=== PATIENT | male | born 1970 | race Two or more races ===

== ENCOUNTER 2017-01-26 11:21 | Emergency (ER) | payer MEDICAID ==
[2017-01-26 11:26] VITALS: RESP 18
[2017-01-26] MEDS ORDERED: SODIUM CHLORIDE 0.9% 1,000 ML IV STA ×2 (11:41)
--- NOTE | 2017-01-26 12:05 | ED ---
General Adult HPI - General Chief complaint: Dizziness Stated complaint: DIZZINESS Time Seen by Provider: 01/26/17 11:28 Source: patient, RN notes reviewed, old records reviewed Mode of arrival: wheelchair Limitations: no limitations - History of Present Illness Initial comments: This is a 46-year-old no the ER for evaluation. Patient is safe reevaluation of nonspecific symptoms, dizziness and lightheadedness. Symptoms began shortly after waking up this morning around 10 AM. Patient has medical history of high blood pressure, no high cholesterol no diabetes nonsmoker. She has a cardiac evaluation in the past including stress test and echo which were normal. She denies chest pain. No significant diaphoresis. No recent fevers cough or congestion. Patient does admit to recent left-sided flank pain which he thinks he twisted something at work. No problems with urination no diarrhea. Patient states he feels like lightheaded like his head is floating. Not able to focus. - Related Data Home Medications Medication Instructions Recorded Confirmed Losartan Potassium [Cozaar] 50 mg PO HS 01/26/17 01/26/17 Allergies Allergy/AdvReac Type Severity Reaction Status Date / Time codeine AdvReac Nausea & Verified 01/26/17 11:41 Vomiting Review of Systems ROS Statement: Those systems with pertinent positive or pertinent negative responses have been documented in the HPI. ROS Other: All systems not noted in ROS Statement are negative. Past Medical History Past Medical History: Hypertension History of Any Multi-Drug Resistant Organisms: None Reported Past Surgical History: Joint Replacement, Orthopedic Surgery Past Psychological History: No Psychological Hx Reported Smoking Status: Never smoker Past Alcohol Use History: None Reported Past Drug Use History: None Reported General Exam Limitations: no limitations General appearance: alert, in no apparent distress Head exam: Present: atraumatic, normocephalic, normal inspection Eye exam: Present: normal appearance, PERRL, EOMI. Absent: scleral icterus, conjunctival injection, periorbital swelling ENT exam: Present: normal exam, mucous membranes moist Neck exam: Present: normal inspection. Absent: tenderness, meningismus, lymphadenopathy Respiratory exam: Present: normal lung sounds bilaterally. Absent: respiratory distress, wheezes, rales, rhonchi, stridor Cardiovascular Exam: Present: regular rate, normal rhythm, normal heart sounds. Absent: systolic murmur, diastolic murmur, rubs, gallop, clicks GI/Abdominal exam: Present: soft, normal bowel sounds. Absent: distended, tenderness, guarding, rebound, rigid Extremities exam: Present: normal inspection, full ROM, normal capillary refill. Absent: tenderness, pedal edema, joint swelling, calf tenderness Back exam: Present: normal inspection Neurological exam: Present: alert, oriented X3, CN II-XII intact Psychiatric exam: Present: normal affect, normal mood Skin exam: Present: warm, dry, intact, normal color. Absent: rash Course Vital Signs 01/26/17 01/26/17 01/26/17 11:23 12:02 13:17 Temperature 97.9 F 97.9 F Pulse Rate 91 88 78 Respiratory 18 18 18 Rate Blood Pressure 144/86 130/76 128/75 O2 Sat by Pulse 98 96 96 Oximetry 01/26/17 15:09 Temperature 98.1 F Pulse Rate 72 Respiratory 18 Rate Blood Pressure 127/67 O2 Sat by Pulse 98 Oximetry EKG Findings - EKG Comments: EKG Findings:: EKG shows normal sinus rhythm rate 79, HI 162, QRS 90, QTC 433 Medical Decision Making - Medical Decision Making 46-year-old year with nonspecific dizziness and pain. Left flank pain mainly complaining of dizziness and episodic. Chest pain. No significant stressor with at this time. Patient has nonspecific symptoms, labwork is normal EKG is normal troponin is negative CT of abdomen and pelvis shows no thoracic aortic injury or abdominal aortic injury, patient does have kidney stone, likely cause of pain. Patient at this time is without complaint, feeling better with IV fluid and can be discharged home to follow up for outpatient stress test - Lab Data Result diagrams: 01/26/17 11:40 01/26/17 11:40 Lab Results 01/26/17 01/26/17 01/26/17 Range/Units 11:40 11:40 11:40 WBC 4.4 (3.8-10.6) k/uL RBC 5.20 (4.30-5.90) m/uL Hgb 16.5 (13.0-17.5) gm/dL Hct 46.6 (39.0-53.0) % MCV 89.6 (80.0-100.0) fL MCH 31.7 (25.0-35.0) pg MCHC 35.4 (31.0-37.0) g/dL RDW 13.0 (11.5-15.5) % Plt Count 258 (150-450) k/uL Neutrophils % 70 % Lymphocytes % 20 % Monocytes % 7 % Eosinophils % 2 % Basophils % 1 % Neutrophils # 3.0 (1.3-7.7) k/uL Lymphocytes # 0.9 L (1.0-4.8) k/uL Monocytes # 0.3 (0-1.0) k/uL Eosinophils # 0.1 (0-0.7) k/uL Basophils # 0.0 (0-0.2) k/uL Hyperchromasia Slight PT (9.0-12.0) sec INR (<1.1) APTT (22.0-30.0) sec D-Dimer (<0.60) mg/L FEU Sodium 142 (137-145) mmol/L Potassium 4.3 (3.5-5.1) mmol/L Chloride 106 (98-107) mmol/L Carbon Dioxide 26 (22-30) mmol/L Anion Gap 10 mmol/L BUN 13 (9-20) mg/dL Creatinine 0.77 (0.66-1.25) mg/dL Est GFR (MDRD) Af Amer >60 (>60 ml/min/1.73 sqM) Est GFR (MDRD) Non-Af >60 (>60 ml/min/1.73 sqM) Glucose 105 H (74-99) mg/dL Calcium 9.3 (8.4-10.2) mg/dL Phosphorus 2.3 L (2.5-4.5) mg/dL Magnesium 2.1 (1.6-2.3) mg/dL Total Bilirubin 0.7 (0.2-1.3) mg/dL AST 35 (17-59) U/L ALT 48 (21-72) U/L Alkaline Phosphatase 93 (38-126) U/L Total Creatine Kinase 69 (55-170) U/L CK-MB (CK-2) 1.0 (0.0-2.4) ng/mL CK-MB (CK-2) Rel Index 1.4 Troponin I <0.012 (0.000-0.034) ng/mL Total Protein 7.1 (6.3-8.2) g/dL Albumin 4.5 (3.5-5.0) g/dL Lipase (23-300) U/L 01/26/17 01/26/17 01/26/17 Range/Units 11:40 11:40 11:40 WBC (3.8-10.6) k/uL RBC (4.30-5.90) m/uL Hgb (13.0-17.5) gm/dL Hct (39.0-53.0) % MCV (80.0-100.0) fL MCH (25.0-35.0) pg MCHC (31.0-37.0) g/dL RDW (11.5-15.5) % Plt Count (150-450) k/uL Neutrophils % % Lymphocytes % % Monocytes % % Eosinophils % % Basophils % % Neutrophils # (1.3-7.7) k/uL Lymphocytes # (1.0-4.8) k/uL Monocytes # (0-1.0) k/uL Eosinophils # (0-0.7) k/uL Basophils # (0-0.2) k/uL Hyperchromasia PT 10.3 (9.0-12.0) sec INR 1.0 (<1.1) APTT 25.5 (22.0-30.0) sec D-Dimer 0.47 (<0.60) mg/L FEU Sodium (137-145) mmol/L Potassium (3.5-5.1) mmol/L Chloride (98-107) mmol/L Carbon Dioxide (22-30) mmol/L Anion Gap mmol/L BUN (9-20) mg/dL Creatinine (0.66-1.25) mg/dL Est GFR (MDRD) Af Amer (>60 ml/min/1.73 sqM) Est GFR (MDRD) Non-Af (>60 ml/min/1.73 sqM) Glucose (74-99) mg/dL Calcium (8.4-10.2) mg/dL Phosphorus (2.5-4.5) mg/dL Magnesium (1.6-2.3) mg/dL Total Bilirubin (0.2-1.3) mg/dL AST (17-59) U/L ALT (21-72) U/L Alkaline Phosphatase (38-126) U/L Total Creatine Kinase (55-170) U/L CK-MB (CK-2) (0.0-2.4) ng/mL CK-MB (CK-2) Rel Index Troponin I (0.000-0.034) ng/mL Total Protein (6.3-8.2) g/dL Albumin (3.5-5.0) g/dL Lipase 183 (23-300) U/L - Radiology Data Radiology results: report reviewed (Chest x-ray is negative for acute disease, CT abdomen and pelvis is positive for kidney stone, no aortic disease), image reviewed Disposition Clinical Impression: Calculus of left kidney, Dizziness Disposition: HOME SELF-CARE Condition: Good Instructions: Kidney Stones (ED), Dizziness (ED) Referrals: Yaniv Kelley DO [Primary Care Provider] - 1-2 days
[2017-01-26 12:06] LABS: Basophils % (A) 1 %; CH 33.2; CHCM 37.3; Eosinophils # (A) 0.1 k/uL (0-0.7); Eosinophils % (A) 2 %; HCT 46.6 % (39.0-53.0); HDW 3.19; HGB 16.5 gm/dL (13.0-17.5); Hyperchromasia Slight; Luc # (Auto) 0.06; Luc % (Auto) 2; Lymphocytes # (A) 0.9 k/uL (1.0-4.8); Lymphocytes % (A) 20 %; MCH 31.7 pg (25.0-35.0); MCHC 35.4 g/dL (31.0-37.0); MCV 89.6 fL (80.0-100.0); Mean Platelet Volume 6.4; Monocytes # (A) 0.3 k/uL (0-1.0); Monocytes % (A) 7 %; Neutrophils % (A) 70 %; WBC 4.4 k/uL (3.8-10.6); WBC (Perox) 4.23
[2017-01-26 12:14] LABS: ALT 48 U/L (21-72); AST 35 U/L (17-59); Alkaline Phosphatase 93 U/L (38-126); Anion Gap 10 mmol/L; Blood Urea Nitrogen 13 mg/dL (9-20); Calcium 9.3 mg/dL (8.4-10.2); Carbon Dioxide 26 mmol/L (22-30); Chloride 106 mmol/L (98-107); Glucose 105 mg/dL (74-99); Magnesium 2.1 mg/dL (1.6-2.3); Non-African American GFR(MDRD) >60 (>60 ml/min/1.73 sqM); Phosphorous 2.3 mg/dL (2.5-4.5); Potassium 4.3 mmol/L (3.5-5.1); Sodium 142 mmol/L (137-145); Total Bilirubin 0.7 mg/dL (0.2-1.3); Total Protein 7.1 g/dL (6.3-8.2)
[2017-01-26 12:21] LABS: Partial Thromboplastin Time 25.5 sec (22.0-30.0); Prothrombin Time 10.3 sec (9.0-12.0)
--- NOTE | 2017-01-26 12:21 | XR ---
EXAMINATION TYPE: XR chest 2V DATE OF EXAM: 01/26/2017 12:11 PM COMPARISON: NONE HISTORY: Chest pain TECHNIQUE: Frontal and lateral views of the chest are obtained. FINDINGS: There is no focal air space opacity. No evidence for pnuemothorax.No pleural effusion. The cardiac silhouette size is mildly prominent. The osseous structures are grossly intact. IMPRESSION: 1. Mild cardiac prominence. No evidence for focal infiltrate or congestive failure.
[2017-01-26 12:33] LABS: Creatine Kinase 69 U/L (55-170)
[2017-01-26 12:47] LABS: Troponin I <0.012 ng/mL (0.000-0.034)
--- NOTE | 2017-01-26 14:20 | CT ---
EXAMINATION TYPE: CT abdomen pelvis wo con DATE OF EXAM: 01/26/2017 2:01 PM COMPARISON: NONE HISTORY: Pain CT DLP: 1516.4 mGycm Automated exposure control for dose reduction was used. TECHNIQUE: Helical acquisition of images was performed from the lung bases through the pelvis. FINDINGS: LUNG BASES: Calcified granuloma left lung.. LIVER/GB: No significant abnormality is appreciated. PANCREAS: No significant abnormality is seen. SPLEEN: No significant abnormality is seen. ADRENALS: No significant abnormality is seen. KIDNEYS: 2 mm right renal calculus. No hydronephrosis.. ADENOPATHY: None visualized. OSSEOUS STRUCTURES: Hypertrophic and degenerative change of the spine noted. Previous surgery involv ing the hips bilaterally.. BOWEL: Appendix normal. Bowel gas pattern nonspecific. OTHER: Aorta of normal caliber. IMPRESSION: 1. Tiny 2 mm right renal calculus with no hydronephrosis.
[2017-01-26 15:10] VITALS: BP 127/67; PULSE 72; TEMP 98.1
== END 2017-01-26 15:11 | disposition home or self-care (01) ==
LOC: EC 11:21
DX: N20.0 Calculus of kidney (principal); R42 Dizziness and giddiness; I10 Essential (primary) hypertension; Z79.899 Other long term (current) drug therapy; Z88.5 Allergy status to narcotic agent
CPT/HCPCS: 36415; 71020; 74176; 80053; 82550; 82553; 83690; 83735; 84100; 84484; 85025; 85379; 85610; 85730; 93005; 96360; 96361; 99285

== ENCOUNTER → 2017-11-26 | Outpatient (CLI) | payer MEDICAID ==
--- NOTE | 2017-11-26 10:32 | NM ---
EXAMINATION TYPE: NM stress cardiolite complete DATE OF EXAM: 11/26/2017 COMPARISON: NONE HISTORY: Chest pain TECHNIQUE: After the intravenous administration of 10.8 mCi Tc 99m Sestamibi - Rest images obtained 45 minutes post injection. The patient exercised using a LUCINDA protocol and 1 minute prior to peak exercise was injected with 27 mCi Tc 99m Sestamibi - Stress images obtained 30 minutes post injection . FINDINGS: Targeted heart rate was achieved during performance of the study. Review of stress and rest SPECT kiya ges demonstrates no distinct perfusion abnormality. Gated analysis shows normal wall motion with an estimated left ventricular ejection fraction of 51 %. TID is calculated at 0.87, within normal limits . IMPRESSION: 1. No scintigraphic evidence for reversible ischemia 2. Estimated left ventricular ejection fraction of 51%.
--- NOTE | 2017-11-26 10:54 | ECHOF ---
Referral Reason:I10 hypertention, R00.2 palpitations MEASUREMENTS -------- HEIGHT: 177.8 cm WEIGHT: 120.2 kg BP: 128/74 RVIDd: 3.5 cm (< 3.3) IVSd: 1.3 cm (0.6 - 1.1) LVIDd: 5.7 cm (3.9 - 5.3) LVPWd: 1.3 cm (0.6 - 1.1) IVSs: 1.8 cm LVIDs: 3.4 cm LVPWs: 2.1 cm LA Diam: 3.8 cm (2.7 - 3.8) LAESV Index (A-L): 19.41 ml/m Ao Diam: 3.9 cm (2.0 - 3.7) AV Cusp: 3.1 cm (1.5 - 2.6) MV EXCURSION: 27.289 mm (> 18.000) MV EF SLOPE: 43 mm/s (70 - 150) EPSS: 0.3 cm MV E Jeremi: 0.79 m/s MV DecT: 194 ms MV A Jeremi: 0.55 m/s MV E/A Ratio: 1.43 RAP: 5.00 mmHg RVSP: 26.20 mmHg FINDINGS -------- Sinus rhythm. This was a technically adequate study. The left ventricle is mildly dilated. There is mild concentric left ventricular hypertrophy. Over all left ventricular systolic function is normal with, an EF between 55 - 60 %. Basal inferoseptal LV wall motion is hypokinetic. Chordal KHADIJAH noted. The right ventricle is mildly enlarged. Normal LA size by volume 22+/-6 ml/m2. The right atrium is normal in size. The aortic valve is trileaflet and appears structurally normal. Mild mitral regurgitation is present. Mild tricuspid regurgitation present. Right ventricular systolic pressure is normal at < 35 mmHg. Trace/mild (physiologic) pulmonic regurgitation. The aortic root is dilated measuring 3.9cm. IVC Not well visulized. There is no pericardial effusion. CONCLUSIONS -------- 1. Sinus rhythm. 2. This was a technically adequate study. 3. The left ventricle is mildly dilated. 4. There is mild concentric left ventricular hypertrophy. 5. Overall left ventricular systolic function is normal with, an EF between 55 - 60 %. 6. Basal inferoseptal LV wall motion is hypokinetic. 7. Chordal KHADIJAH noted. 8. The right ventricle is mildly enlarged. 9. Normal LA size by volume 22+/-6 ml/m2. 10. The right atrium is normal in size. 11. The aortic valve is trileaflet and appears structurally normal. 12. Mild mitral regurgitation is present. 13. Mild tricuspid regurgitation present. 14. Right ventricular systolic pressure is normal at < 35 mmHg. 15. Trace/mild (physiologic) pulmonic regurgitation. 16. The aortic root is dilated measuring 3.9cm. 17. IVC Not well visulized. 18. There is no pericardial effusion. BABY SITTER: Qian Torres RDCS
--- NOTE | 2017-11-26 12:12 | P.STRESS ---
- Stress Test Note Stress Test Results/Findings: Exam Performed: NM stress cardiolite complete Exam Date: 11/26/17 Reason for Exam: Palpatations Height: 5 ft 10 in Weight: 120.202 kg Protocol: Eulogio Cardiolite Stage: 3 Duration of Exercise: 9:00 Resting Heart Rate: 87 Resting Blood Pressure: 126/91 Maximum Achieved Heart Rate: 160 Maximum Achieved Blood Pressure: 185/73 85% PMHR: 149 100% PMHR: 175 METS: 10.5 Technologist Comment: Stress Test Results/Findings: This is a 47-year-old gentleman with history of hypertension being evaluated for symptoms of palpitations. Baseline EKG showed sinus rhythm with normal CT interval and QRS duration. Blood pressure at rest is 126/91, pulse rate of 87. Patient walked on the Eulogio protocol for 9 minutes achieving a maximum heart rate 160 with a maximal heart rate of 185/73. EKGs taken during and after the exercise did not reveal any significant changes from the baseline. Patient did not experience any chest pain. Final impression: #1. Negative stress test #2 patient did not explained any chest pain #3. No arrhythmias noted. #4. Patient's exercise capacity is good. #4. Report on the nuclear images to be given by the radiologist.
--- NOTE | 2017-11-27 11:33 | EST ---
- Stress Test Note Stress Test Results/Findings: Exam Performed: NM stress cardiolite complete Exam Date: 11/26/17 Reason for Exam: Palpatations Height: 5 ft 10 in Weight: 120.202 kg Protocol: Eulogio Cardiolite Stage: 3 Duration of Exercise: 9:00 Resting Heart Rate: 87 Resting Blood Pressure: 126/91 Maximum Achieved Heart Rate: 160 Maximum Achieved Blood Pressure: 185/73 85% PMHR: 149 100% PMHR: 175 METS: 10.5 Technologist Comment: Stress Test Results/Findings: This is a 47-year-old gentleman with history of hypertension being evaluated for symptoms of palpitations. Baseline EKG showed sinus rhythm with normal [place] interval and QRS duration. Blood pressure at rest is 126/91, pulse rate of 87. Patient walked on the Eulogio protocol for 9 minutes achieving a maximum heart rate 160 with a maximal heart rate of 185/73. EKGs taken during and after the exercise did not reveal any significant changes from the baseline. Patient did not experience any chest pain. Final impression: #1. Negative stress test #2 patient did not explained any chest pain #3. No arrhythmias noted. #4. Patient's exercise capacity is good. #4. Report on the nuclear images to be given by the radiologist. PARAMJIT
== END | disposition home or self-care (01) ==
LOC: RADNMMAIN 08:15
PROVIDERS: ATTEND Internal Medicine Clinical Cardiac Electrophysiology
DX: I08.1 Rheumatic disorders of both mitral and tricuspid valves (principal); I10 Essential (primary) hypertension
CPT/HCPCS: 93017; 93306; 93270; 93271; 78452; A9500

== ENCOUNTER → 2017-12-27 | Outpatient (CLI) | payer MEDICAID | END | disposition home or self-care (01) | LOC: LABWHC1 07:36 | PROVIDERS: ATTEND Internal Medicine Clinical Cardiac Electrophysiology | DX: R00.2 Palpitations (principal) | CPT/HCPCS: 36415; 84443 ==

== ENCOUNTER 2018-01-14 16:20 | Emergency (ER) | payer MEDICAID ==
[2018-01-14 16:45] VITALS: RESP 18
[2018-01-14 17:10] LABS: Basophils % (A) 1 %; Eosinophils # (A) 0.1 k/uL (0-0.7); Eosinophils % (A) 2 %; HCT 46.2 % (39.0-53.0); HGB 16.6 gm/dL (13.0-17.5); Hyperchromasia Slight; Lymphocytes # (A) 1.1 k/uL (1.0-4.8); Lymphocytes % (A) 20 %; MCH 31.6 pg (25.0-35.0); MCHC 35.9 g/dL (31.0-37.0); MCV 87.9 fL (80.0-100.0); Mean Platelet Volume 6.4; Monocytes # (A) 0.4 k/uL (0-1.0); Monocytes % (A) 6 %; Neutrophils # (A) 3.8 k/uL (1.3-7.7); Neutrophils % (A) 69 %; Platelet Count 266 k/uL (150-450); RBC 5.26 m/uL (4.30-5.90); RDW 12.9 % (11.5-15.5); WBC 5.5 k/uL (3.8-10.6)
--- NOTE | 2018-01-14 17:14 | XR ---
EXAMINATION TYPE: XR chest 2V DATE OF EXAM: 01/14/2018 COMPARISON: Chest x-ray January 26, 2017 HISTORY: Irregular heartbeat TECHNIQUE: Frontal and lateral views of the chest are obtained. FINDINGS: There is no focal air space opacity, pleural effusion, or pneumothorax seen. The cardiac silhouette size is stable and within normal limits. The osseous structures are intact. IMPRESSION: No acute cardiopulmonary process currently.
[2018-01-14 17:20] LABS: Partial Thromboplastin Time 23.3 sec (22.0-30.0); Prothrombin Time 10.1 sec (9.0-12.0)
[2018-01-14 17:30] LABS: ALT 37 U/L (21-72); AST 28 U/L (17-59); Albumin 4.5 g/dL (3.5-5.0); Alkaline Phosphatase 83 U/L (38-126); Anion Gap 12 mmol/L; Blood Urea Nitrogen 17 mg/dL (9-20); Calcium 9.7 mg/dL (8.4-10.2); Carbon Dioxide 28 mmol/L (22-30); Chloride 103 mmol/L (98-107); Glucose 98 mg/dL (74-99); Magnesium 2.1 mg/dL (1.6-2.3); Potassium 3.9 mmol/L (3.5-5.1); Sodium 143 mmol/L (137-145); Total Bilirubin 0.6 mg/dL (0.2-1.3); Total Protein 6.8 g/dL (6.3-8.2)
[2018-01-14 17:32] LABS: Creatine Kinase 98 U/L (55-170)
[2018-01-14 17:44] LABS: Troponin I <0.012 ng/mL (0.000-0.034)
[2018-01-14 18:29] VITALS: BP 128/81; PULSE 80; TEMP 97.2
--- NOTE | 2018-01-14 18:37 | ED ---
Arrhythmia/Palpitations HPI - General Chief Complaint: Arrhythmia/Palpitations Stated Complaint: Heart palpitations Time Seen by Provider: 01/14/18 17:53 Source: patient, family, RN notes reviewed, old records reviewed Mode of arrival: ambulatory Limitations: no limitations - History of Present Illness Initial Comments: This a 47-year-old male presents emergency from chief complaint of palpitations. Patient states that he was driving down to [place] today in which he started feeling slightly lightheaded felt like his heart was racing or fluttering. He states this is been an ongoing issue but seemed worse today than usual. Patient has seen Dr. Garcia and has had echocardiogram, Holter monitor and stress test. Patient had normal stress echo. Patient does have follow-up appointments again tomorrow with adjudication specialist. Patient has had follow -up after the testing and they stated they will come up with a plan for him. Patient has no current chest pain or shortness breath. He states he feels improved he states he does not feel palpitations as he did earlier. He is not lightheaded or dizzy. Denies any nausea vomiting. - Related Data Home Medications Medication Instructions Recorded Confirmed Losartan Potassium [Cozaar] 50 mg PO HS 01/26/17 01/26/17 Allergies Allergy/AdvReac Type Severity Reaction Status Date / Time codeine AdvReac Nausea & Verified 01/14/18 16:45 Vomiting Review of Systems ROS Statement: Those systems with pertinent positive or pertinent negative responses have been documented in the HPI. ROS Other: All systems not noted in ROS Statement are negative. Past Medical History Past Medical History: Hypertension History of Any Multi-Drug Resistant Organisms: None Reported Past Surgical History: Joint Replacement, Orthopedic Surgery Additional Past Surgical History / Comment(s): bilateral hip replaced Past Psychological History: No Psychological Hx Reported Smoking Status: Never smoker Past Alcohol Use History: None Reported Past Drug Use History: None Reported General Exam Limitations: no limitations General appearance: alert, in no apparent distress Head exam: Present: atraumatic, normocephalic, normal inspection Eye exam: Present: normal appearance, PERRL, EOMI. Absent: scleral icterus, conjunctival injection, periorbital swelling ENT exam: Present: normal exam, normal oropharynx, mucous membranes moist Neck exam: Present: normal inspection, full ROM. Absent: tenderness, meningismus, lymphadenopathy Respiratory exam: Present: normal lung sounds bilaterally. Absent: respiratory distress, wheezes, rales, rhonchi, stridor Cardiovascular Exam: Present: regular rate, normal rhythm, normal heart sounds. Absent: systolic murmur, diastolic murmur, rubs, gallop, clicks Neurological exam: Present: alert, oriented X3, CN II-XII intact Skin exam: Present: warm, dry, intact, normal color. Absent: rash Course Vital Signs 01/14/18 01/14/18 16:42 18:27 Temperature 98.1 F 97.2 F L Pulse Rate 94 80 Respiratory 18 18 Rate Blood Pressure 120/78 128/81 O2 Sat by Pulse 95 97 Oximetry EKG Findings - EKG Comments: EKG Findings:: EKG performed at 16:53 normal sinus rhythm with a rate of 95 Pr 162 QRS 94 QT/QTC 372/467 Medical Decision Making - Medical Decision Making 47-year-old male presented for palpitations. Patient has had ongoing issues with this. Patient states he does feel improved compared to prior. He has appointment with cardiology tomorrow. Patient feels comfortable discharged from the updated and results. - Lab Data Result diagrams: 01/14/18 17:00 01/14/18 17:00 Lab Results 01/14/18 01/14/18 01/14/18 Range/Units 17:00 17:00 17:00 WBC 5.5 (3.8-10.6) k/uL RBC 5.26 (4.30-5.90) m/uL Hgb 16.6 (13.0-17.5) gm/dL Hct 46.2 (39.0-53.0) % MCV 87.9 (80.0-100.0) fL MCH 31.6 (25.0-35.0) pg MCHC 35.9 (31.0-37.0) g/dL RDW 12.9 (11.5-15.5) % Plt Count 266 (150-450) k/uL Neutrophils % 69 % Lymphocytes % 20 % Monocytes % 6 % Eosinophils % 2 % Basophils % 1 % Neutrophils # 3.8 (1.3-7.7) k/uL Lymphocytes # 1.1 (1.0-4.8) k/uL Monocytes # 0.4 (0-1.0) k/uL Eosinophils # 0.1 (0-0.7) k/uL Basophils # 0.0 (0-0.2) k/uL Hyperchromasia Slight PT (9.0-12.0) sec INR (<1.2) APTT (22.0-30.0) sec Sodium 143 (137-145) mmol/L Potassium 3.9 (3.5-5.1) mmol/L Chloride 103 (98-107) mmol/L Carbon Dioxide 28 (22-30) mmol/L Anion Gap 12 mmol/L BUN 17 (9-20) mg/dL Creatinine 0.84 (0.66-1.25) mg/dL Est GFR (CKD-EPI)AfAm >90 (>60 ml/min/1.73 sqM) Est GFR (CKD-EPI)NonAf >90 (>60 ml/min/1.73 sqM) Glucose 98 (74-99) mg/dL Calcium 9.7 (8.4-10.2) mg/dL Magnesium 2.1 (1.6-2.3) mg/dL Total Bilirubin 0.6 (0.2-1.3) mg/dL AST 28 (17-59) U/L ALT 37 (21-72) U/L Alkaline Phosphatase 83 (38-126) U/L Total Creatine Kinase 98 (55-170) U/L CK-MB (CK-2) 1.0 (0.0-2.4) ng/mL CK-MB (CK-2) Rel Index 1.0 Troponin I <0.012 (0.000-0.034) ng/mL Total Protein 6.8 (6.3-8.2) g/dL Albumin 4.5 (3.5-5.0) g/dL 01/14/18 Range/Units 17:00 WBC (3.8-10.6) k/uL RBC (4.30-5.90) m/uL Hgb (13.0-17.5) gm/dL Hct (39.0-53.0) % MCV (80.0-100.0) fL MCH (25.0-35.0) pg MCHC (31.0-37.0) g/dL RDW (11.5-15.5) % Plt Count (150-450) k/uL Neutrophils % % Lymphocytes % % Monocytes % % Eosinophils % % Basophils % % Neutrophils # (1.3-7.7) k/uL Lymphocytes # (1.0-4.8) k/uL Monocytes # (0-1.0) k/uL Eosinophils # (0-0.7) k/uL Basophils # (0-0.2) k/uL Hyperchromasia PT 10.1 (9.0-12.0) sec INR 1.0 (<1.2) APTT 23.3 (22.0-30.0) sec Sodium (137-145) mmol/L Potassium (3.5-5.1) mmol/L Chloride (98-107) mmol/L Carbon Dioxide (22-30) mmol/L Anion Gap mmol/L BUN (9-20) mg/dL Creatinine (0.66-1.25) mg/dL Est GFR (CKD-EPI)AfAm (>60 ml/min/1.73 sqM) Est GFR (CKD-EPI)NonAf (>60 ml/min/1.73 sqM) Glucose (74-99) mg/dL Calcium (8.4-10.2) mg/dL Magnesium (1.6-2.3) mg/dL Total Bilirubin (0.2-1.3) mg/dL AST (17-59) U/L ALT (21-72) U/L Alkaline Phosphatase (38-126) U/L Total Creatine Kinase (55-170) U/L CK-MB (CK-2) (0.0-2.4) ng/mL CK-MB (CK-2) Rel Index Troponin I (0.000-0.034) ng/mL Total Protein (6.3-8.2) g/dL Albumin (3.5-5.0) g/dL Disposition Clinical Impression: Palpitations Disposition: HOME SELF-CARE Condition: Stable Instructions: Palpitations (ED) Additional Instructions: Please return to the Emergency Department if symptoms worsen or any other concerns. Is patient prescribed a controlled substance at d/c from ED?: No Referrals: Yaniv Kleley DO [Primary Care Provider] - 1-2 days Cecil Garcia MD [STAFF PHYSICIAN] - 1-2 days Time of Disposition: 18:37
== END 2018-01-14 18:49 | disposition home or self-care (01) ==
LOC: EC 16:20
DX: R00.2 Palpitations (principal); I10 Essential (primary) hypertension; Z79.899 Other long term (current) drug therapy; Z88.5 Allergy status to narcotic agent
CPT/HCPCS: 36415; 71046; 80053; 82550; 82553; 83735; 84484; 85025; 85610; 85730; 93005; 99285

== ENCOUNTER 2023-05-28 06:21 | Day surgery (SDC) | payer MEDICAID ==
[~2023-05-28 06:21] MED LIST: ACETAMINOPHEN TAB 500 MG TAB PO PRN; HEPARIN SODIUM,PORCINE/PF 5,000 UNIT/0.5 ML SYRINGE SQ PRN; Pre Op ABX Message 1 EACH MISC MISCELLANE ONE
[2023-05-28] MEDS ORDERED: ONDANSETRON 4 MG/2 ML VIAL IVP ONE (06:23)
[2023-05-28] MEDS ORDERED: MIDAZOLAM 2 MG/2 ML VIAL IV PRN (06:23)
[2023-05-28] MEDS ORDERED: LIDOCAINE 1% (10MG/ML) FOR IV START INTRADERMA PRN (06:23)
[2023-05-28] MEDS ORDERED: HYDROmorphone 0.5 MG/0.5 ML SYRINGE IVP PRN (06:23)
[2023-05-28] MEDS ORDERED: LACTATED RINGERS 1,000 ML IV SCH (06:23)
[2023-05-28] MEDS ORDERED: DEXAMETHASONE SOD PHOSPHATE 4 MG/ML 1 ML VIAL IV ONE (06:23)
[2023-05-28] MEDS ORDERED: fentaNYL (PF) 50 MCG/ML 2 ML AMP ONE (07:25)
[2023-05-28] MEDS ORDERED: MIDAZOLAM 2 MG/2 ML VIAL ONE (07:25)
[2023-05-28] MEDS ORDERED: PROPOFOL 10 MG/ML 20 ML VIAL IV ONE (07:25)
[2023-05-28] MEDS ORDERED: ceFAZolin 1,000 MG VIAL IVPB ONE (07:30)
[2023-05-28] MEDS ORDERED: LIDOCAINE 1%-EPI 1:100,000 50 ML VIAL SQ ONE (07:30)
--- NOTE | 2023-05-28 07:30 | P.GSHP ---
History of Present Illness H&P Date: 05/28/23 Chief Complaint: Chest wall lipoma, screening 52-year-old male here for excision chest wall lipoma and screening colonoscopy. Last seen in the office in November. Please refer to that history and physical. No changes since then. Mild soreness at times. Lump may have gotten slightly bigger. Past Medical History Past Medical History: Hypertension Additional Past Medical History / Comment(s): Routine colonoscopy. Lung nodule being monitored, past kidney stones/passed on his own. History of Any Multi-Drug Resistant Organisms: None Reported Past Surgical History: Joint Replacement, Orthopedic Surgery Additional Past Surgical History / Comment(s): bilateral hip replaced, R knee arthroscopic surgery Past Anesthesia/Blood Transfusion Reactions: No Reported Reaction Smoking Status: Never smoker - Past Family History Father Family Medical History: AFIB Mother History Unknown: Yes Medications and Allergies Home Medications Medication Instructions Recorded Confirmed Type Losartan Potassium [Cozaar] 50 mg PO HS 01/26/17 05/28/23 History Allergies Allergy/AdvReac Type Severity Reaction Status Date / Time codeine AdvReac Severe Nausea & Verified 05/28/23 06:41 Vomiting Surgical - Exam Physical exam: General: Well-developed, well-nourished HEENT: Normocephalic, sclerae nonicteric Chest: 1.5-2 cm lipomatous mass right parasternal border, smaller less than 1 cm mass possibly inferior and slightly medial to that Abdomen: Nontender, nondistended Extremities: No edema Neuro: Alert and oriented Assessment and Plan (1) Lipoma of chest wall Narrative/Plan: 52-year-old male with lipoma chest wall possibly 2 of them. Will proceed with excision were 2 lipomatous lesions and colonoscopy. Risks of bleeding perforation and infection reviewed. He understands and wishes to proceed. Current Visit: Yes Status: Acute Code(s): D17.1 - BENIGN LIPOMATOUS NEOPLASM OF SKIN, SUBCU OF TRUNK SNOMED Code(s): 605902176
[2023-05-28 08:31] VITALS: RESP 16
--- NOTE | 2023-05-28 08:39 | P.OP ---
Date of Procedure: 05/28/23 Procedure(s) Performed: PREOPERATIVE DIAGNOSIS: Cancer screening, chest wall mass POSTOPERATIVE DIAGNOSIS: Chest wall lipoma 2, diverticulosis PROCEDURE: Excision chest wall lipoma 2, intermediate closure, Colonoscopy ANESTHESIA: MAC SURGEON: Stefano Montanez M.D. SPECIMENS: Sedation and local ENDOSCOPIC PROCEDURE: The patient was placed on the operating table in the supine position. The chest was prepped and draped sterilely. The patient was sedated. 1% lidocaine was used. A small horizontal incision was made overlying the larger palpable mass. Dissection through the superficial subcutaneous tissues took place using cautery. The lipomatous mass was removed. This measured 2 cm. Inferior to that I was able to dissect until we reached the 1.5 cm lipoma and this was excised through the same incision. Subcutaneous tissue and closed using interrupted 3-0 Vicryl sutures and the skin using interrupted 4-0 Monocryl sutures. Skin glue and sterile dressings were then applied. The patient was then placed on the stretcher in the left decubitus position. The Olympus colonoscope was inserted into the anus and passed under direct visualization to the base of the cecum. The appendiceal orifice was visualized. From that point the scope was slowly withdrawn inspecting all surfaces careful ly. There were no neoplastic inflammatory or polypoid lesions throughout the cecum, ascending, transverse, descending, sigmoid and rectum. There was mild left-sided diverticulosis noted. Digital rectal examination was normal. The patient was taken to the recovery room in stable condition per anesthesia guidelines. RECOMMENDATIONS: Await biopsy results. Resume diet. Repeat colonoscopy 10 year s.
[2023-05-28 08:44] VITALS: BP 105/65; PULSE 68
== END 2023-05-28 09:08 | disposition home or self-care (01) ==
LOC: OR 06:21
PROVIDERS: ATTEND Surgery
DX: Z12.11 Encounter for screening for malignant neoplasm of colon (principal); D17.1 Benign lipomatous neoplasm of skin and subcutaneous tissue of trunk; K64.8 Other hemorrhoids; K57.30 Diverticulosis of large intestine without perforation or abscess without bleeding; I96 Gangrene, not elsewhere classified; I10 Essential (primary) hypertension; Z98.890 Other specified postprocedural states; Z88.5 Allergy status to narcotic agent; Z79.899 Other long term (current) drug therapy
CPT/HCPCS: 21552; 88305; 45378; J2250; J1100; J2405; J0690; J3010; J2704; J1644; 45380

== ENCOUNTER 2024-07-23 11:06 | Observation (INO) | payer MEDICAID ==
--- NOTE | 2024-07-23 12:05 | XR ---
EXAMINATION TYPE: XR chest 2V DATE OF EXAM: 07/23/2024 12:00 PM COMPARISON: 01/14/2018 CLINICAL INDICATION: Male, 53 years old with history of Chest Pain, TECHNIQUE: XR chest 2V view(s) obtained. FINDINGS: The heart size is normal. The pulmonary vasculature is normal. The lungs are clear. IMPRESSION: 1. No acute pulmonary process. [facility], , 07/23/2024 12:03 PM
[2024-07-23 12:07] LABS: ALT 54 U/L (4-49); AST 43 U/L (17-59); African American GFR (CKD) >90 (>60 ml/min/1.73 sqM); Albumin 4.6 g/dL (3.5-5.0); Alkaline Phosphatase 79 U/L (38-126); Anion Gap 10 mmol/L; Blood Urea Nitrogen 16 mg/dL (9-20); Calcium 9.1 mg/dL (8.4-10.2); Carbon Dioxide 26 mmol/L (22-30); Chloride 103 mmol/L (98-107); Glucose 142 mg/dL (74-99); Non-African American GFR(CKD) >90 (>60 ml/min/1.73 sqM); Potassium 3.8 mmol/L (3.5-5.1); Sodium 139 mmol/L (137-145); Total Bilirubin 0.9 mg/dL (0.2-1.3)
--- NOTE | 2024-07-23 12:11 | ED ---
General Adult HPI - General Chief complaint: Chest Pain Stated complaint: Chest pain Time Seen by Provider: 07/23/24 11:22 Source: patient, RN notes reviewed, old records reviewed Mode of arrival: ambulatory Limitations: no limitations - History of Present Illness Initial comments: 53-year-old male presenting with left-sided chest pain that began just prior to arrival. Patient's pain is left-sided, radiates to the left shoulder. Associated with mild dyspnea. Patient states the pain began while at rest. He does report that it is sharp in nature and worse with deep inspiration. No prior history of CAD, no history of DVT or PE. - Related Data Home Medications Medication Instructions Recorded Confirmed Losartan Potassium [Cozaar] 50 mg PO HS 01/26/17 05/28/23 Allergies Allergy/AdvReac Type Severity Reaction Status Date / Time codeine AdvReac Severe Nausea & Verified 07/23/24 11:11 Vomiting Review of Systems ROS Statement: Those systems with pertinent positive or pertinent negative responses have been documented in the HPI. ROS Other: All systems not noted in ROS Statement are negative. Past Medical History Past Medical History: Hypertension Additional Past Medical History / Comment(s): Routine colonoscopy. Lung nodule being monitored, past kidney stones/passed on his own. History of Any Multi-Drug Resistant Organisms: None Reported Past Surgical History: Joint Replacement, Orthopedic Surgery Additional Past Surgical History / Comment(s): bilateral hip replaced, R knee arthroscopic surgery Past Anesthesia/Blood Transfusion Reactions: No Reported Reaction Past Psychological History: No Psychological Hx Reported Smoking Status: Never smoker Past Alcohol Use History: Rare Past Drug Use History: None Reported - Past Family History Father Family Medical History: AFIB Mother History Unknown: Yes General Exam Limitations: no limitations General appearance: alert, in no apparent distress Head exam: Present: atraumatic, normocephalic Eye exam: Present: normal appearance, PERRL ENT exam: Present: normal exam Neck exam: Present: normal inspection. Absent: tenderness, meningismus Respiratory exam: Present: normal lung sounds bilaterally. Absent: respiratory distress, wheezes Cardiovascular Exam: Present: regular rate, normal rhythm GI/Abdominal exam: Present: soft. Absent: distended, tenderness, guarding Extremities exam: Present: normal inspection, normal capillary refill. Absent: pedal edema, calf tenderness Neurological exam: Present: alert, oriented X3, CN II-XII intact. Absent: motor sensory deficit Psychiatric exam: Present: normal affect, normal mood Skin exam: Present: warm, dry, intact. Absent: cyanosis, diaphoretic Course Vital Signs 07/23/24 07/23/24 11:11 11:17 Temperature 98 F Pulse Rate 104 H Pulse Rate [ 112 H Radiation Safety Officer ] Respiratory 20 Rate Blood Pressure 133/76 O2 Sat by Pulse 95 Oximetry - Reevaluation(s) Reevaluation #1: 07/23/24 12:57 Reevaluated, chest pain significantly improved Medical Decision Making - Medical Decision Making Was pt. sent in by a medical professional or institution (, PA, HAND BANDER, urgent care, hospital, or custodial...) When possible be specific @ -No Did you speak to anyone other than the patient for history (EMS, parent, family, police, friend...)? What history was obtained from this source @ -No Did you review nursing and triage notes (agree or disagree)? Why? @ -I reviewed and agree with nursing and triage notes Were old charts reviewed (outside hosp., previous admission, EMS record, old EKG, old radiological studies, urgent care reports/EKG's, custodial records)? Report findings @ -No old charts were reviewed Differential Chest Pain: Stable Angina, Unstable Angina, STEMI, NSTEMI Aortic Dissection, Pneumothorax, M usculoskeletal, Esophageal Spasm GERD, Cholecystitis, Pancreatitis, Zoster, this is not meant to be an all-inclusive list. ] EKG interpreted by me (3pts min.). @Initial EKG at 1128 sinus tachycardia rate of 103, RI interval 177, QRS duration 147, right bundle branch block Repeat EKG at 1146, sinus rhythm rate of 81, right bundle branch block, RI interval 175, QRS duration 157, QTc 450, no history of right bundle branch block. X-rays interpreted by me (1pt min.). @2 view chest x-ray negative for acute cardiopulmonary findings CT interpreted by me (1pt min.). @ -None done U/S interpreted by me (1pt. min.). @ -None done What testing was considered but not performed or refused? (CT, X-rays, U/S, labs)? Why? @ -None What meds were considered but not given or refused? Why? @ -None Did you discuss the management of the patient with other professionals (professionals i.e. , PA, HAND BANDER, lab, RT, psych nurse, social psychologist, commercial credit reviewer, teacher, ship's officer, nurse outreach case manager)? Give summary @ -Case discussed with Dr. Tripp who will admit covering for Dr. Kelley Was smoking cessation discussed for >3mins.? @ -No Was critical care preformed (if so, how long)? @ -No Were there social determinants of health that impacted care today? How? (Homelessness, low income, unemployed, alcoholism, drug addiction, transportation, low edu. Level, literacy, decrease access to med. care, fci, rehab)? @ -No Was there de-escalation of care discussed even if they declined (Discuss DNR or withdrawal of care, Hospice)? DNR status @ -No What co-morbidities impacted this encounter? (DM, HTN, Smoking, COPD, CAD, Cancer, CVA, ARF, Chemo, Hep., AIDS, mental health diagnosis, sleep apnea, morbid obesity)? @ -Hypertension Was patient admitted / discharged? Hospital course, mention meds given and route, prescriptions, significant lab abnormalities, going to OR and other pertinent info. @ -53 yo male presents for evaluation of left-sided chest pain rating to the left shoulder. Patient's pain began just prior to arrival. Patient is in sinus rhythm with right bundle branch block which is new compared to prior. Chest x- ray is clear. He has normal CBC, normal CMP, negative D-dimer, negative initial troponin. Patient will be observed for chest pain rule out, serial cardiac enzymes, telemetry, cardiology consultation. Undiagnosed new problem with uncertain prognosis? @ -No Drug Therapy requiring intensive monitoring for toxicity (Heparin, Nitro, Insulin, Cardizem)? @ -No Were any procedures done? @ -No Diagnosis/symptom? @Chest pain Acute, or Chronic, or Acute on Chronic? @Acute Uncomplicated (without systemic symptoms) or Complicated (systemic symptoms)? @ -Default Side effects of treatment? @ -No Exacerbation, Progression, or Severe Exacerbation? @ -No Poses a threat to life or bodily function? How? (Chest pain, USA, MS, pneumonia, PE, COPD, DKA, ARF, appy, cholecystitis, CVA, Diverticulitis, Homicidal, Suicidal, threat to staff... and all critical care pts) @ -Yes, chest pain - Lab Data Result diagrams: 07/23/24 11:46 07/23/24 11:46 Lab Results 07/23/24 07/23/24 07/23/24 Range/Units 11:46 11:46 11:46 WBC 4.2 (3.8-10.6) k/uL RBC 5.23 (4.30-5.90) m/uL Hgb 16.6 (13.0-17.5) gm/dL Hct 48.2 (39.0-53.0) % MCV 92.1 (80.0-100.0) fL MCH 31.6 (25.0-35.0) pg MCHC 34.4 (31.0-37.0) g/dL RDW 12.6 (11.5-15.5) % Plt Count 249 (150-450) k/uL MPV 6.8 Neutrophils % 60 % Lymphocytes % 29 % Monocytes % 7 % Eosinophils % 2 % Basophils % 1 % Neutrophils # 2.5 (1.3-7.7) k/uL Lymphocytes # 1.2 (1.0-4.8) k/uL Monocytes # 0.3 (0-1.0) k/uL Eosinophils # 0.1 (0-0.7) k/uL Basophils # 0.0 (0-0.2) k/uL PT 10.7 (10.0-12.5) sec INR 1.0 (<1.2) APTT 20.8 L (22.0-30.0) sec D-Dimer 0.46 (<0.60) mg/L FEU Sodium 139 (137-145) mmol/L Potassium 3.8 (3.5-5.1) mmol/L Chloride 103 (98-107) mmol/L Carbon Dioxide 26 (22-30) mmol/L Anion Gap 10 mmol/L BUN 16 (9-20) mg/dL Creatinine 0.71 (0.66-1.25) mg/dL Est GFR (CKD-EPI)AfAm >90 (>60 ml/min/1.73 sqM) Est GFR (CKD-EPI)NonAf >90 (>60 ml/min/1.73 sqM) Glucose 142 H (74-99) mg/dL Calcium 9.1 (8.4-10.2) mg/dL Magnesium 2.0 (1.6-2.3) mg/dL Total Bilirubin 0.9 (0.2-1.3) mg/dL AST 43 (17-59) U/L ALT 54 H (4-49) U/L Alkaline Phosphatase 79 (38-126) U/L Troponin I (0.000-0.034) ng/mL Total Protein 7.0 (6.3-8.2) g/dL Albumin 4.6 (3.5-5.0) g/dL 07/23/24 Range/Units 11:46 WBC (3.8-10.6) k/uL RBC (4.30-5.90) m/uL Hgb (13.0-17.5) gm/dL Hct (39.0-53.0) % MCV (80.0-100.0) fL MCH (25.0-35.0) pg MCHC (31.0-37.0) g/dL RDW (11.5-15.5) % Plt Count (150-450) k/uL MPV Neutrophils % % Lymphocytes % % Monocytes % % Eosinophils % % Basophils % % Neutrophils # (1.3-7.7) k/uL Lymphocytes # (1.0-4.8) k/uL Monocytes # (0-1.0) k/uL Eosinophils # (0-0.7) k/uL Basophils # (0-0.2) k/uL PT (10.0-12.5) sec INR (<1.2) APTT (22.0-30.0) sec D-Dimer (<0.60) mg/L FEU Sodium (137-145) mmol/L Potassium (3.5-5.1) mmol/L Chloride (98-107) mmol/L Carbon Dioxide (22-30) mmol/L Anion Gap mmol/L BUN (9-20) mg/dL Creatinine (0.66-1.25) mg/dL Est GFR (CKD-EPI)AfAm (>60 ml/min/1.73 sqM) Est GFR (CKD-EPI)NonAf (>60 ml/min/1.73 sqM) Glucose (74-99) mg/dL Calcium (8.4-10.2) mg/dL Magnesium (1.6-2.3) mg/dL Total Bilirubin (0.2-1.3) mg/dL AST (17-59) U/L ALT (4-49) U/L Alkaline Phosphatase (38-126) U/L Troponin I <0.012 (0.000-0.034) ng/mL Total Protein (6.3-8.2) g/dL Albumin (3.5-5.0) g/dL Disposition Clinical Impression: Chest pain Disposition: ADMITTED IP TO THIS HOSP Condition: Stable Is patient prescribed a controlled substance at d/c from ED?: No Referrals: Yaniv Kelley DO [Primary Care Provider] - 1-2 days Time of Disposition: 12:59
[2024-07-23 12:12] LABS: Basophils % (A) 1 %; Eosinophils # (A) 0.1 k/uL (0-0.7); Eosinophils % (A) 2 %; HCT 48.2 % (39.0-53.0); HGB 16.6 gm/dL (13.0-17.5); Lymphocytes # (A) 1.2 k/uL (1.0-4.8); Lymphocytes % (A) 29 %; MCH 31.6 pg (25.0-35.0); MCHC 34.4 g/dL (31.0-37.0); MCV 92.1 fL (80.0-100.0); Mean Platelet Volume 6.8; Monocytes # (A) 0.3 k/uL (0-1.0); Monocytes % (A) 7 %; Neutrophils # (A) 2.5 k/uL (1.3-7.7); Neutrophils % (A) 60 %; Platelet Count 249 k/uL (150-450); RBC 5.23 m/uL (4.30-5.90); RDW 12.6 % (11.5-15.5); WBC 4.2 k/uL (3.8-10.6)
[2024-07-23 12:28] LABS: Partial Thromboplastin Time 20.8 sec (22.0-30.0); Prothrombin Time 10.7 sec (10.0-12.5)
[2024-07-23] MEDS ORDERED: ACETAMINOPHEN TAB 325 MG TAB PO PRN (12:56)
[2024-07-23] MEDS ORDERED: NALOXONE 0.4 MG/ML 1 ML VIAL IV PRN (12:56)
[2024-07-23] MEDS ORDERED: ONDANSETRON 4 MG/2 ML VIAL IVP PRN (12:56)
[2024-07-23] MEDS: ASPIRIN 325 MG TAB PO STA (12:59)
--- NOTE | 2024-07-23 21:08 | P.HPIM ---
History of Present Illness H&P Date: 07/23/24 Chief Complaint: Chest pain Patient is a 53-year-old male with a known history of hypertension presents to ER with complaints of chest pain. Patient states that he was walking to his desk at work around 11 AM, he suddenly started having left-sided chest pain below the rib cage associate with mild shortness of breath and pain with deep breathing. Pain radiated to the left shoulder. Pain relieved without any intervention. No associated dizziness or lightheadedness. No palpitations. No nausea or vomiting or abdominal pain. No diarrhea. Denied any recent illnesses. Patient did have history of GERD like symptoms previously but currently not on any medications. According to the patient he had stress test and was placed on Holter monitor about 6 years back. Denied any history of smoking or alcohol use. Denied any [id number] pain medication use. Chest x-ray showed no acute pulmonary process. EKG showed sinus rhythm with right bundle branch block Laboratory data showed WBC 4.2 hemoglobin 16.6 and platelets 249 D-dimer 0.46 Sodium 139 potassium 3.8 chloride 103 bicarb is 26 BUN 16 and creatinine 0.71 blood sugar 142 and magnesium 2.0 Troponin x 2 negative. Review of Systems Constitutional: Patient denies any fever or chills . No generalized weakness or weight loss. Abdomen: Patient denied nausea vomiting and diarrhea and abdominal pain. Cardiovascular: Patient denies any chest pain or short of breath no palpitati ons. Respiratory: patient denied any cough or sputum production. No shortness of breath Neurologic: Patient denied any numbness or tingling. no headache. Musculoskeletal: Patient denies any complaints of joint swelling or deformity. Skin: Negative Psychiatric: Negative Endocrine: No heat or cold intolerance. No recent weight gain. Genitourinary: No dysuria or hematuria. All other 14 point ROS negative except the above Past Medical History Past Medical History: Hypertension Additional Past Medical History / Comment(s): Routine colonoscopy. Lung nodule being monitored, past kidney stones/passed on his own. History of Any Multi-Drug Resistant Organisms: None Reported Past Surgical History: Joint Replacement, Orthopedic Surgery Additional Past Surgical History / Comment(s): bilateral hip replaced, R knee arthroscopic surgery Past Anesthesia/Blood Transfusion Reactions: No Reported Reaction Past Psychological History: No Psychological Hx Reported Smoking Status: Never smoker Past Alcohol Use History: Rare Past Drug Use History: None Reported - Past Family History Father Family Medical History: AFIB Mother History Unknown: Yes Medications and Allergies Home Medications Medication Instructions Recorded Confirmed Type Losartan Potassium [Cozaar] 50 mg PO HS 01/26/17 07/23/24 History Allergies Allergy/AdvReac Type Severity Reaction Status Date / Time codeine AdvReac Severe Nausea & Verified 07/23/24 13:16 Vomiting Physical Exam Vitals: Vital Signs Temp Pulse Pulse Resp BP BP Pulse Ox 07/23/24 20:00 98.0 F 77 18 123/74 96 07/23/24 18:29 79 18 128/77 99 07/23/24 17:00 82 18 113/72 99 07/23/24 14:00 81 18 120/72 99 07/23/24 13:10 78 18 121/92 99 07/23/24 11:17 112 H 07/23/24 11:11 98 F 104 H 20 133/76 95 Intake and Output 07/23/24 07/23/24 07/23/24 06:59 14:59 22:59 Other: Weight 108.862 kg PHYSICAL EXAMINATION: Patient is lying in the bed comfortably, no acute distress, awake alert and oriented.. HEENT: Normocephalic. Neck is supple. Pupils reactive. Nostrils clear. Oral cavity is moist. Neck reveals no JVD, carotid bruits, or thyromegaly. CHEST EXAMINATION: Trachea is central. Symmetrical expansion. Lung hill clear to auscultation and percussion. CARDIAC: Normal S1, S2 with no gallops. No murmurs ABDOMEN: Soft. Bowel sounds normal. No organomegaly. No abdominal bruits. Extremities: reveal no edema. No clubbing or cyanosis Neurologically awake, alert, oriented x3 with well-coordinated movements. No focal deficits noted Skin: No rash or skin lesions. Psychiatric: Coperative. Nonsuicidal Musculoskeletal: No joint swelling or deformity. Normal range of motion. Results CBC & Chem 7: 07/23/24 11:46 07/23/24 11:46 Labs: Abnormal Lab Results - Last 24 Hours (Table) 07/23/24 07/23/24 Range/Units 11:46 11:46 APTT 20.8 L (22.0-30.0) sec Glucose 142 H (74-99) mg/dL ALT 54 H (4-49) U/L Thrombosis Risk Factor Assmnt - DVT/VTE Prophylaxis DVT/VTE Prophylaxis: Pharmacologic Prophylaxis ordered Assessment and Plan Assessment: Atypical chest pain. Rule out ACS. New onset right bundle branch block Hypertension Lung nodule being monitored History of renal stones/pass on his 1. Plan: Patient will be continued on telemonitoring. Follow-up serial EKG and troponin x 3. D-dimer is not elevated. Pain is mainly pleuritic in nature. Continue with aspirin and follow lipid panel. Start back on home blood pressure medication losartan. Cardiology was consulted for evaluation. Continue to follow closely. Time with Patient: Greater than 30
[2024-07-23] MEDS: LOSARTAN 50 MG TAB PO SCH (21:13)
[2024-07-24 02:42] VITALS: RESP 16
[2024-07-24 07:21] VITALS: BP 122/76; PULSE 66; TEMP 98
[2024-07-24 09:26] LABS: Chol/HDL Ratio 2.51 Ratio; VLDL Calculation 11.92 mg/dL (5.00-40.00)
[2024-07-24 09:27] LABS: BUN/Creat Ratio 18.62 Ratio (12.00-20.00); Blood Urea Nitrogen 14.9 mg/dL (9.0-27.0); Calcium 8.8 mg/dL (8.7-10.3); Carbon Dioxide 22.5 mmol/L (21.6-31.8); Chloride 107 mmol/L (96-109); Glucose 99 mg/dL (70-110); LDL Cholesterol,Calculated 42.2 mg/dL (0.0-131.0); Sodium 141 mmol/L (135-145)
--- NOTE | 2024-07-24 10:47 | P.CRDCN ---
History of Present Illness History of present illness: HISTORY OF PRESENT ILLNESS: This is a 53-year-old male with a past medical history significant for hypertension. Patient does not follow with a slip feeder. We have been asked to see the patient in consultation for chest pain. Patient examined at the bedside. Patient states he was at work yesterday when he began to have chest discomfort. He states the pain was on the left side of his chest and radiated into his shoulder. He states the pain is worse with deep inspiration. He states the pain lasted for approximately 1 hour and then subsided on its own. He states he has not had chest pain like this in the past. He states he was not doing anything out of the ordinary physically. Patient currently denies chest pain at the time of examination. DIAGNOSTICS: - EKG reveals sinus mechanism with right bundle branch block - Chest xray negative for acute process - Laboratory data: WBC 4.2. Hemoglobin 16.6. Platelet count 249. D-dimer 0.46. Sodium 141. Potassium 4.0. BUN 14.9. Creatinine 0.8. Troponin negative x 3 - Current home cardiac medications include losartan 50 mg at night REVIEW OF SYSTEMS: At the time of my exam: CONSTITUTIONAL: Denies fever or chills. HEENT: Denies blurred vision, vision changes, or eye pain. Denies hemoptysis CARDIOVASCULAR: Denies chest pain. Denies orthopnea. Denies PND. Denies palpitations RESPIRATORY: Denies shortness of breath. GASTROINTESTINAL: Denies abdominal pain. Denies nausea or vomiting. HEMATOLOGIC: Denies bleeding disorders. GENITOURINARY: Denies any blood in urine. SKIN: Denies pruitis. Denies rash. PHYSICAL EXAM: VITAL SIGNS: Reviewed. GENERAL: Well-developed in no acute distress. HEENT: Head is normocephalic. Pupils are equal, round. Sclerae anicteric. Mucous membranes of the mouth are moist. Neck supple. No JVD or thyromegaly LUNGS: Respirations even and unlabored. Lungs essentially clear to auscultation bilaterally. HEART: Regular rate and rhythm. S1 and S2 heard. ABDOMEN: Soft. Nondistended. Nontender. EXTREMITIES: Normal range of motion. No clubbing or cyanosis. Peripheral pulses intact. No lower extremity edema NEUROLOGIC: Awake and alert. Oriented x 3. ASSESSMENT: Chest pain Hypertension PLAN: An acute coronary event has been ruled out Obtain 2D echo to assess cardiac structure and function Resume home cardiac medications Patient to undergo stress echocardiogram today If negative, he may be discharged home from a cardiac standpoint Nurse practitioner note has been reviewed by physician. Signing provider agrees with the documented findings, assessment, and plan of care documented by PRODUCTION MACHINE OPERATOR as a scribe. Past Medical History Past Medical History: Hypertension Additional Past Medical History / Comment(s): Routine colonoscopy. Lung nodule being monitored, past kidney stones/passed on his own. History of Any Multi-Drug Resistant Organisms: None Reported Past Surgical History: Joint Replacement, Orthopedic Surgery Additional Past Surgical History / Comment(s): bilateral hip replaced, R knee arthroscopic surgery Past Anesthesia/Blood Transfusion Reactions: No Reported Reaction Past Psychological History: No Psychological Hx Reported Smoking Status: Never smoker Past Alcohol Use History: Rare Additional Past Alcohol Use History / Comment(s): patient states he may have a couple drinks at most once a month. Past Drug Use History: None Reported - Past Family History Father Family Medical History: AFIB Mother History Unknown: Yes Medications and Allergies Home Medications Medication Instructions Recorded Confirmed Type Losartan Potassium [Cozaar] 50 mg PO HS 01/26/17 07/23/24 History Allergies Allergy/AdvReac Type Severity Reaction Status Date / Time codeine AdvReac Severe Nausea & Verified 07/23/24 13:16 Vomiting Physical Exam Vitals: Vital Signs Temp Pulse Pulse Resp BP BP BP 07/24/24 07:00 98.0 F 66 16 122/76 07/24/24 02:00 97.5 F L 62 16 102/69 07/23/24 20:00 98.0 F 77 18 123/74 07/23/24 18:29 79 18 128/77 07/23/24 17:00 82 18 113/72 07/23/24 14:00 81 18 120/72 07/23/24 13:10 78 18 121/92 07/23/24 11:17 112 H 07/23/24 11:11 98 F 104 H 20 133/76 Pulse Ox 07/24/24 07:00 95 07/24/24 02:00 96 07/23/24 20:00 96 07/23/24 18:29 99 07/23/24 17:00 99 07/23/24 14:00 99 07/23/24 13:10 99 07/23/24 11:17 11/06/24 11:11 95 Intake and Output 07/23/24 07/24/24 07/24/24 22:59 06:59 14:59 Intake Total 560 0 Balance 560 0 Intake: Oral 560 0 Other: # Voids 3 2 # Bowel Movements 0 Weight 108.862 kg Results 07/23/24 11:46 07/24/24 05:08 Cardiac Enzymes 07/23/24 07/23/24 07/23/24 Range/Units 11:46 11:46 15:00 AST 43 (17-59) U/L Troponin I <0.012 <0.012 (0.000-0.034) ng/mL 07/23/24 Range/Units 18:35 AST (17-59) U/L Troponin I <0.012 (0.000-0.034) ng/mL Coagulation 07/23/24 Range/Units 11:46 PT 10.7 (10.0-12.5) sec APTT 20.8 L (22.0-30.0) sec CBC 07/23/24 Range/Units 11:46 WBC 4.2 (3.8-10.6) k/uL RBC 5.23 (4.30-5.90) m/uL Hgb 16.6 (13.0-17.5) gm/dL Hct 48.2 (39.0-53.0) % Plt Count 249 (150-450) k/uL Comprehensive Metabolic Panel 07/23/24 Range/Units 11:46 Sodium 139 (137-145) mmol/L Potassium 3.8 (3.5-5.1) mmol/L Chloride 103 (98-107) mmol/L Carbon Dioxide 26 (22-30) mmol/L BUN 16 (9-20) mg/dL Creatinine 0.71 (0.66-1.25) mg/dL Glucose 142 H (74-99) mg/dL Calcium 9.1 (8.4-10.2) mg/dL AST 43 (17-59) U/L ALT 54 H (4-49) U/L Alkaline Phosphatase 79 (38-126) U/L Total Protein 7.0 (6.3-8.2) g/dL Albumin 4.6 (3.5-5.0) g/dL Current Medications Generic Name Dose Route Start Last Admin Trade Name Freq PRN Reason Stop Dose Admin Acetaminophen 650 mg 07/23/24 12:56 Acetaminophen Tab 325 Mg Tab PO Q6HR PRN Mild Pain or Fever > 100.5 Losartan Potassium 50 mg 07/23/24 21:00 07/23/24 21:13 Losartan 50 Mg Tab PO 50 mg HS LEYLA Administration Naloxone HCl 0.2 mg 07/23/24 12:56 Naloxone 0.4 Mg/Ml 1 Ml Vial IV Q2M PRN Opioid Reversal Ondansetron HCl 4 mg 07/23/24 12:56 Ondansetron 4 Mg/2 Ml Vial IVP Q8HR PRN Nausea And Vomiting Intake and Output 07/23/24 07/24/24 07/24/24 22:59 06:59 14:59 Intake Total 560 0 Balance 560 0 Intake: Oral 560 0 Other: # Voids 3 2 # Bowel Movements 0 Weight 108.862 kg 07/23/24 11:46 07/23/24 11:46
--- NOTE | 2024-07-24 11:13 | CA ---
Transthoracic Echo Report Name: Gonzalo Aviles Age: 53 Gender: M : 1970 Exam Date: 07/24/2024 10:51 Exam Location: [place] [facility] Ht (in): 70 Wt (lb): 240 Ordering Physician: Lydia Daley Attending/Referring Phys: [id number], Thuy Wheel Assembler Qian Torres RDCS Procedure CPT: Indications: LV function, CP Cardiac Hx: Technical Quality: Good Contrast 1: Total Dose (mL): Contrast 2: Total Dose (mL): MEASUREMENTS (Male / Female) Normal Values 2D ECHO LV Diastolic Diameter PLAX 5.3 cm 4.2 - 5.9 / 3.9 - 5.3 cm LV Systolic Diameter PLAX 3.8 cm IVS Diastolic Thickness 1.5 cm 0.6 - 1.0 / 0.6 - 0.9 cm LVPW Diastolic Thickness 1.4 cm 0.6 - 1.0 / 0.6 - 0.9 cm LV Relative Wall Thickness 0.5 RV Internal Dim ED PLAX 4.1 cm LA Systolic Diameter LX 3.9 cm 3.0 - 4.0 / 2.7 - 3.8 cm LV Diastolic Volume MOD BP 90.9 cm??? 67 - 155 / 56 - 104 cm??? LV Systolic Volume MOD BP 44.3 cm??? - / 19 - 49 cm??? LV Ejection Fraction MOD BP 51.2 % >= 55 % LV Cardiac Index MOD BP 1776.8 cm???/min???m??? LV Diastolic Volume MOD 4C 79.5 cm??? LV Systolic Volume MOD 4C 38.0 cm??? LV Ejection Fraction MOD 4C 52.2 % LV Cardiac Index MOD 4C 1587.2 cm???/min???m??? LV Diastolic Length 4C 10.1 cm LV Systolic Length 4C 7.9 cm LV Diastolic Volume MOD 2C 101.3 cm??? LV Systolic Volume MOD 2C 24.9 cm??? LV Ejection Fraction MOD 2C 75.4 % LV Cardiac Index MOD 2C 2917.5 cm???/min???m??? LV Diastolic Length 2C 10.7 cm LV Systolic Length 2C 3.5 cm LA Volume 53.7 cm??? - 58 / 22 - 52 cm??? LA Volume Index 22.8 cm???/m??? 16 - 28 cm???/m??? M-MODE Aortic Root Diameter MM 4.0 cm AV Cusp Separation MM 3.0 cm DOPPLER AV Peak Velocity 99.1 cm/s AV Peak Gradient 3.9 mmHg MV Area PHT 3.3 cm??? Mitral E Point Velocity 55.3 cm/s Mitral A Point Velocity 45.7 cm/s Mitral E to A Ratio 1.2 MV Deceleration Time 231.0 ms TR Peak Velocity 232.5 cm/s TR Peak Gradient 21.6 mmHg Right Ventricular Systolic Press 25.7 mmHg FINDINGS Left Ventricle Left ventricular ejection fraction is estimated at 55-60 %. Left ventricular cavity size normal. Moderately increased septal wall thickness. Mildly decreased left ventricular ejection fraction. Normal left ventricular wall motion. Right Ventricle Severe right ventricular dilatation. Right ventricular systolic pressure within normal limits. Right Atrium Normal right atrial size. No right atrial thrombus or mass seen. Left Atrium Normal left atrial size. No left atrial thrombus or mass present. Mitral Valve Structurally normal mitral valve. No mitral stenosis, or prolapse. Trace mitral regurgitation. Aortic Valve Trileaflet aortic valve. No aortic valve stenosis or regurgitation. Tricuspid Valve Structurally normal tricuspid valve. Mild tricuspid regurgitation. Pulmonic Valve Structurally normal pulmonic valve. No pulmonic regurgitation. Pericardium No pericardial or pleural effusion. Aorta Moderate aortic dilatation at the level of the sinuses of valsalva 40 mm. Ascending aorta aneurysm. CONCLUSIONS Normal left ventricular size wall motion systolic function Moderate aortic root dilated dictation measuring 40 mm at the sinus of Valsalva Previewed by: Dr. Luis Ramirez MD (Electronically Signed) Final Date: 24 July 2024 11:13
--- NOTE | 2024-07-24 11:16 | CA ---
Stress Echo Report Gonzalo Aviles Age: 53 Gender: M : 1970 Exam Date: 07/24/2024 10:31 Exam Location: [facility] Ht (in): 70 Wt (lb): 240 Ordering Physician: Lydia Daley Referring Physician: [id number] Concrete Paver: Qian Torres RDCS Technologist Procedure CPT: Indication: CP ICD-9 Codes: Rhythm: Patient History: CHEST PAIN, HTN, Cardiac Medications: Medications in past 24 hours: Contrast: Stress Results Protocol: Eulogio Total dose(mL): Exercise Duration (min:sec): 9:[address] Depression (mm): Angina Score: Diaz Score: METS: 10.3 Resting HR: 90 Resting BP: 118 / 72 Peak HR: 152 Peak BP: 216 / 72 Max Predicted HR: 169 90 % Max Predicted HR Target HR: 144 Double Product: [id number] Stress Summary: BP Response: Reason for Termination: TARGET HR/MAX EXERTION Cardiac Symptoms: NO SYMPTOMS ECG Analysis Resting ECG: Normal sinus rhythm with right bundle branch block Stress ECG: Patient exercised on Eulogio protocol for 9 minutes achieving 85% of predicted maximal heart rate without chest pain at peak exercise there was [address] segment depression noted in the inferolateral leads Arrhythmia: Echo Analysis Resting Echo: Normal left ventricular size wall motion systolic function Peak Echo Analysis: Normal hyperdynamic response MEASUREMENTS (Male/Female) Normal Values CONCLUSIONS Exercise tolerance Inconclusive EKG portion of the stress test due to baseline EKG abnormalities Negative stress echo Dr. Luis Ramirez MD (Electronically Signed) Final Date: 24 July 2024 11:15
--- NOTE | 2024-07-24 15:46 | CT ---
EXAMINATION TYPE: CT angio chest CT DLP: 1425.7 mGycm, Automated exposure control for dose reduction was used. DATE OF EXAM: 07/24/2024 3:09 PM COMPARISON: Chest radiograph 07/23/2024 CLINICAL INDICATION:Male, 53 years old with history of dilated aortic root on echo; dilated aortic ro ot on echo, chest pain TECHNIQUE/CONTRAST: CTA scan of the thorax is performed without and with IV Contrast, patient injected with 100 mL of Iso yoni 300, pulmonary embolism protocol. MIP images are created and reviewed. FINDINGS: Pulmonary Artery: There is no evidence for a filling defect within the pulmonary vasculature to sugge st acute pulmonary embolism. The pulmonary artery is of normal size. Lungs/Pleura: No evidence of focal consolidation, pleural effusion or pneumothorax. Left lower lobe c alcified granuloma. Lingular 3.9 mm pulmonary nodule (series 7, image 105). Right midlung 4.1 mm pulm onary nodule (series 7, image 78). Airway: Large airways are patent. Heart: Heart is within normal limits for size.. No pericardial effusion. Vasculature: No evidence of intrarenal hematoma or dissection. Mildly dilated aortic root measuring u p to 4.0 cm. The ascending thoracic aorta is ectatic measuring up to 3.9 cm. Conventional three-vesse l aortic arch. The descending thoracic aorta is normal caliber measuring up to 2.6 cm. Mediastinum: No gross evidence of adenopathy. Musculoskeletal: No acute osseous abnormalities. Mild anterior hypertrophic changes of the lower thor acic spine. Soft Tissues: Unremarkable. Lower neck: No significant findings. Upper Abdomen: Diffuse low-attenuation to the liver parenchyma.. IMPRESSION: 1. No evidence of pulmonary embolism. 2. Aortic root mild aneurysmal dilatation measuring 4.0 cm. Ectasia of the ascending thoracic aorta m easuring up to 3.9 cm. 3. Couple of pulmonary nodules measuring up to 4.1 mm. In a low-risk patient, no follow-up is recomme nded. In a high-risk patient, consider optional CT chest in 12 months. 4. Hepatic steatosis. [facility], , 07/24/2024 3:44 PM
--- NOTE | 2024-07-28 10:07 | P.DS ---
Providers Date of admission: 07/23/24 12:57 Expected date of discharge: 07/24/24 Attending physician: Vira Tripp Consults: 07/23/24 12:56 Consult Physician Routine Consulting Provider: Luis Ramirez Consult Reason/Comments: CP Do you want consulting provider notified?: Yes Primary care physician: Yaniv Kelley Hospital Course: Final diagnosis Atypical chest pain. Ruled out ACS. New onset right bundle branch block Hypertension Lung nodule being monitored History of renal stones/pass on his own Obesity with a BMI of 34.4 GI prophylaxis DVT prophylaxis Full code Discharge disposition Patient is being discharged in a stable condition with guarded prognosis to home. Patient will follow-up with Dr. Kelley in the outpatient setting upon discharge. Patient is to continue with current medications and outpatient follow-up with cardiology as scheduled. Total time taken is greater than 35 minutes. Hospital course This is a 53-year-old male who was recently admitted with chest pain, ruled out ACS. Patient did undergo stress testing which was negative and evaluated by cardiology including CTA as there was concerned of an enlarged aorta and underwent CTA. Patient has been cleared by cardiology for outpatient follow-up. Please refer to cardiology notes for further HPI. Patient denies any further chest pain, dizziness, shortness of breath or lightheadedness. Patient would like to go home. Currently no reports of chest pain, shortness of breath, or palpitations. Patient is afebrile. No reports of nausea or vomiting and patient is tolerating diet. Patient will be discharged home today. Physical exam: Gen: This is a 53-year-old male who is awake, alert and oriented x 3, well- developed, well-nourished, obese HEENT: Head is atraumatic, normocephalic. Pupils equal, round. Sclerae is anicteric. NECK: Supple. No JVD. No lymphadenopathy. No thyromegaly. LUNGS: Clear to auscultation. No wheezes or rhonchi. No intercostal retractions. HEART: Regular rate and rhythm. No murmur. ABDOMEN: Soft. Obese. Bowel sounds are present. No masses. No tenderness. EXTREMITIES: No pedal edema. No calf tenderness. NEUROLOGICAL: Patient is awake, alert and oriented x3. Cranial nerves 2 through 12 are grossly intact. Please refer to medication reconciliation sheet for a list of medications. The impression and plan of care has been dictated by Sigrid Gallegos, Nurse Practitioner as directed. Dr. Qasim MD I have performed a history and examination and MDM of this patient, discussed the same with the dictator, and agree with the dictator's assessment and plan as written ,documented as a scribe. Based on total visit time, I have performed more than 50% of the visit. Patient Condition at Discharge: Stable Plan - Discharge Summary Discharge Rx Participant: Yes New Discharge Prescriptions: Continue Losartan Potassium [Cozaar] 50 mg PO HS Discharge Medication List Losartan Potassium [Cozaar] 50 mg PO HS 01/26/17 [History] Follow up Appointment(s)/Referral(s): Yaniv Kelley DO [Primary Care Provider] - 07/29/24 8:40 am (appt made with Ibis Narayanan NP) Luis Ramirez MD [STAFF PHYSICIAN] - 08/01/24 3:45 pm Patient Instructions/Handouts: Angina (DC) Activity/Diet/Wound Care/Special Instructions: Activity limited until follow-up Follow-up with primary care provider on discharge Follow-up cardiology outpatient Continue with heart healthy diet Discharge Disposition: HOME SELF-CARE
== END 2024-07-24 17:49 | disposition home or self-care (01) ==
LOC: EC 11:06 → 6NMEDSUR 12:57
PROVIDERS: ADMIT Internal Medicine; ATTEND Internal Medicine
DX: R07.89 Other chest pain (principal); I45.10 Unspecified right bundle-branch block; I71.21 Aneurysm of the ascending aorta, without rupture; K76.0 Fatty (change of) liver, not elsewhere classified; R91.8 Other nonspecific abnormal finding of lung field; I10 Essential (primary) hypertension; E66.9 Obesity, unspecified; Z79.899 Other long term (current) drug therapy; Z68.34 Body mass index [BMI] 34.0-34.9, adult; Z88.5 Allergy status to narcotic agent; Z87.442 Personal history of urinary calculi
CPT/HCPCS: 99285; 36415; 93005; 93306; 93351; 85379; 80061; 80053; 80048; 83735; 84484; 85025; 85610; 85730; 83036; 71046; 71275; G0378 ×2; Q9967